=== PATIENT | female | born 1975 | race Caucasian/White ===

== ENCOUNTER 2017-02-02 20:12 | Emergency (ER) | payer OTHER ==
--- NOTE | 2017-02-02 22:08 | ED NURSING NOTES ---
Clinical Report - Nurses [facility] [address] [place] [address] 02/02/2017 20:14 Patient: RYNE DUNAWAY TRIAGE Triage time 2025 PM. Acuity: LEVEL 3. Chief Complaint: HEADACHE and MIGRAINE HEADACHE. Alert. No acute distress. SEPSIS SCREEN: Sepsis Screen. Negative (no infection suspected/documented). FLORIDALMA COMA SCORE: [place] Coma Scale: 15- eyes open spontaneously (4); best verbal response- oriented x 4 (5); best motor response- obeys commands (6). --20:38 Neli Landaverde R.N. 20:26 02/02/17. BP: 122/60 (regular adult cuff) taken on the left arm, via an automated monitor, while sitting. HR: 80. RR: 14. O2 saturation: 100%. Temp: 98.2 F. Pain level now: 06/22. --20:38 Neli Landaverde R.N. Weight: 110.6 kg stated. Height/Length: 66 inches Per Patient. BMI: 39.4. --20:26 Neli Landaverde R.N. Medications Cymbalta Oral. --20:34 Neli Landaverde R.N. Topiramate Oral 100 mg, daily. --20:35 Neli Landaverde R.N. Ortho Tri-Cyclen (28) Oral. --20:35 Neli Landaverde R.N. Allergies Neomycin. --20:34 Neli Landaverde R.N. Avacodos. --20:34 Neli Landaverde R.N. Medication/allergy information source: the patient. --20:38 Neli Landaverde R.N. History Arrived by private vehicle. Historian: patient. Unaccompanied. Primary physician (Dr. Murray). ( Pt states has suffered from migraines for a couple of years has been under control with meds until 2 weeks ago, now they are not manageable. Went to the Urgent care on [address], received Toradol which helped but since Wednesday has been vomiting approximately 10 times a day with diarrhea (5-6 times). Admits to having numbness and tingling on both hands and radiates up to mid FA.). This started wednesday. She has had nausea, vomiting and numbness. No fever or sinus pain. Treatment AUTOMOBILE APPRAISER: None. PAST MEDICAL HX: Immunizations: up-to-date. Last normal menstrual period- January 31. Sexual history - sexually active. Uses control pills. SOCIAL HX: Former smoker. Occasional alcohol use. (3 weeks). No drug use. No recent travel. No infectious disease exposure. No known contact with a sick individual. ABUSE ASSESSMENT: No report of abuse. SELF HARM ASSESSMENT: A self harm assessment was performed. The patient answered "no" to the question "Do you have thoughts of harming or killing yourself?" and "Have you recently had thoughts about harming or killing others?". FALL RISK ASSESSMENT: Fall risk assessment completed. No fall risk identified. NUTRITIONAL RISK ASSESSMENT: The nutritional risk assessment revealed no deficiencies. FUNCTIONAL ASSESSMENT: Functional assessment: no impairments noted. LEARNING NEEDS ASSESSMENT: The learning needs assessment revealed no barriers. SKIN INTEGRITY ASSESSMENT: Skin integrity risk assessment completed. No skin integrity risk identified. --20:38 Neli Landaverde R.N. PROBLEMS: Fibromyalgia. Migraine Headache. --20:36 Neli Landaverde R.N. ADDITIONAL SURGERIES: Cholecystectomy. Ear surgery for scar tissue . --20:36 Neli Landaverde R.N. Interventions ID band on patient. --20:38 Neli Landaverde R.N. PHYSICAL ASSESSMENT Ambulatory to room. GENERAL / NEURO / PSYCH: Alert. Oriented X 4. Appears in pain. Speech within normal limits. HEENT: No facial asymmetry noted. Pupils equal, round and reactive to light. RESPIRATORY: Respirations not labored. Breath sounds within normal limits. CVS: Capillary refill less than 2 seconds. GI / : Abdomen soft and nontender. SKIN: Skin is warm and dry. --20:38 Neli Landaverde R.N. NURSING PROGRESS NOTES The initial plan of care for this patient has been created This plan of care was discussed with the patient. Patient gowned. Reassurance given. Lights dimmed. Two patient identifiers checked. Call light placed in reach. Side rails up x 1. Bed placed in lowest position. Brakes of bed on. Patient ready for evaluation- chart flagged. --20:39 Neli Landaverde R.N. 20:40 02/02/2017 Site #1 started via IV in the left hand with an 20g angiocath; one attempt. Blood drawn: rainbow set. Labeled in the presence of the patient and sent to the lab. --21:05 Neli Landaverde R.N. 21:00 02/02/2017 Toradol IVP 30 mg given over 30 second(s) via site #1. Allergies verified and confirmed 5 rights. IV patency established. IV site checked: no pain, redness, or swelling. IV flushed thoroughly pre- and post-medication administration. IVP given by RN. --21:05 Neli Landaverde R.N. 21:02/02/2017 Started bag #1 1000 mL IV Fluids IV NS (Saline); at 1000 mL/hr over 1 hour(s) via site #1 via IV pump. Allergies verified and confirmed 5 rights. IV patency established. IV site checked: no pain, redness, or swelling. IV flushed thoroughly pre- and post-medication administration. --21:05 Neli Landaverde R.N. 21:02/02/2017 Zofran (Ondansetron HCl) IVP 8 mg given over 4 minute(s) via site #1. Allergies verified and confirmed 5 rights. IV patency established. IV site checked: no pain, redness, or swelling. IV flushed thoroughly pre- and post-medication administration. IVP given by RN. --21:05 Neli Landaverde R.N. 21:40 02/02/2017 Zofran IVP Response: no adverse reaction pain is improving. Symptoms have improved the patient feels better. --21:40 Neli Landaverde R.N. 21:40 02/02/17. BP: 114/69 (regular adult cuff) taken on the left arm, via an automated monitor, while lying. HR: 66. RR: 15. O2 saturation: 99%. Pain level now: 7/10. --21:42 Neli Landaverde R.N. Warming measures: blanket applied. Reassurance given. Lights dimmed. Reassessment after fluids administered and medication administered. She is calm and has had no adverse reaction. Overall patient status is improved- she states feels better. ( still has a "H/A and would like for something else for the pain, not nauseous anymore" IV fluids infusing, comfort provided). GENERAL / NEURO / PSYCH: The patient reports headache. Denies numbness. HEENT: Denies neck pain. GI / : Denies nausea. Call light placed in reach. Side rails up. Bed placed in lowest position. --21:42 Neli Landaverde R.N. 22:01 02/02/2017 Dilaudid (HYDROmorphone HCl PF) IVP 1 mg given over 30 second(s) via site #1. Allergies verified, confirmed 5 rights and sedative warning given to the patient. IV patency established. IV site checked: no pain, redness, or swelling. IV flushed thoroughly pre- and post-medication administration. IVP given by RN. --22:06 Neli Landaverde R.N. DISPOSITION / DISCHARGE 22:14 02/02/2017 IV Fluids IV NS Discontinued: bag #1 infused upon discharge. Total amount infused: 1000 mL. --22:24 Neli Landaverde R.N. 22:25 02/02/2017 Dilaudid IVP Response: no adverse reaction pain is improving. Symptoms have improved the patient feels better. --22:25 Neli Landaverde R.N. Condition at departure: improved and stable. The goals identified in the patient's plan of care were met. No learning barriers present. Discharge instructions provided and reviewed with the patient. Reviewed medication(s) side effects, precautions, dosing and course information. Prescription(s) given to the patient. Patient verbalized understanding. No treatment instructions or referrals given to the patient. Written instructions not provided in [place]. The patient was discharged by the physician accounting administrative assistant. She was discharged home and accompanied by spouse. She left the Emergency Department ambulatory and via private vehicle. Grocery Deliverer driving. FALL RISK ASSESSMENT: Fall risk assessment completed. No fall risk identified. --22:26 Neli Landaverde R.N. 22:24 02/02/17. BP: 114/58. HR: 79. RR: 15. O2 saturation: 98% on room air. Temp: 98.8 F (oral). Pain level now: 11/20. --22:26 Neli Landaevrde R.N. Departure time: 2234 PM. --22:35 Neli Landaverde R.N. Locked/Released at 02/02/2017 22:35 by Neli Landaverde R.N.
--- NOTE | 2017-02-02 22:08 | ED CLINICAL REPORT ---
Clinical Report - Physicians/Mid Levels [facility] [address] [place] [address] 02/02/2017 20:14 Patient: RYNE DUNAWAY Time Seen: 21:06 Feb 02 2017. Arrived- By private vehicle. Historian- patient. HISTORY OF PRESENT ILLNESS Chief Complaint: HEADACHE. Is still present. This started 4 days. It has been waxing/waning. It is described as similar to previous headaches. The patient has had nausea. (Patient with history of migraine-like headaches, has been using preventative medications, and has had minimize of headaches over the last few months. Patient with no neck pain. No emesis. Patient with no fevers.). Recent medical care: The patient was seen recently by a health care provider (clinic for toradol injeciton). REVIEW OF SYSTEMS No fever, sinus pressure, ear pain, chest pain or cough. No abdominal pain or diarrhea. All systems otherwise negative, except as recorded above. PAST HISTORY Problems: Fibromyalgia. Migraine Headache. Additional Surgeries: Cholecystectomy. Ear surgery for scar tissue . Medications: Ortho Tri-Cyclen (28) Oral. Topiramate Oral 100 mg, daily. Cymbalta Oral. Allergies: Avacodos. Neomycin. SOCIAL HISTORY Former smoker. Alcohol use. ADDITIONAL NOTES The nursing notes have been reviewed. PHYSICAL EXAM Vital Signs: 02/02/2017 20:26 BP: 122/60. HR: 80. RR: 14. O2 saturation: 100%. Temp: 98.2 F. Pain level now: 10/10. Appearance: Alert. No acute distress. Eyes: Pupils equal, round and reactive to light. ENT: Nose normal. Pharynx normal. CVS: Normal heart rate and rhythm. Heart sounds normal. Respiratory: No respiratory distress. Abdomen: Soft. No abdominal tenderness or organomegaly. Neuro: Oriented X 3. Alert. Mood/affect normal. Cranial nerves normal (as tested). No cerebellar findings. No motor deficit. No sensory deficit. LABS, X-RAYS, AND EKG Laboratory Tests: UA-Culture if indicated: (KELY: 02/02/2017 21:15) ( MsgRcvd 02/02/2017 21:44) Final results Test Result Flag Units (Reference) URINE COLOR SHELLEY URINE APPEARANCE SL CLOUDY URINE GLUCOSE NEGATIVE (NEGATIVE) URINE BILIRUBIN 1+ (NEGATIVE) URINE KETONE NEGATIVE (NEGATIVE) URINE SPECIFIC GRAVITY >= 1.030 (1.010-1.030) URINE PH 6.0 (5.0-8.0) URINE PROTEIN TRACE (NEGATIVE) URINE UROBILINOGEN 0.2 EU/dL (0.2-1.0) URINE NITRITE NEGATIVE (NEGATIVE) URINE BLOOD 3+ (NEGATIVE) URINE LEUK ESTERASE NEGATIVE (NEGATIVE) URINE RBC 5-10 rbc/hpf (0-1) URINE WBC 3-5 wbc/hpf (0-1) URINE EPITHELIAL CELLS 1-3 EPI/hpf (0-5) URINE BACTERIA FEW (1+) (NONE SEEN) URINE COMMENT CULT NOT INDICATED 2+ MUCUSICTO TEST NEGURINE CULTURES ARE SET-UP BASED ON THE FOLLOWING CRITERIA:POSITIVE NITRITEPOSITIVE LEUKOCYTE ESTERASEGREATER THAN 10 WHITE BLOOD CELLSMODERATE (2+) OR GREATER BACTERIA Urine: (KELY: 02/02/2017 21:15) ( [facility] 02/02/2017 21:26) Final results Test Result Flag Units (Reference) URINE NEGATIVE CBC w Diff: (KELY: 02/02/2017 20:29) ( [facility] 02/02/2017 21:31) Final results Test Result Flag Units (Reference) WHITE BLOOD COUNT 9.5 K/uL (4.5-11.5) RED BLOOD COUNT 4.54 M/uL (4.00-5.20) HEMOGLOBIN 14.3 gm/dL (12.0-16.0) HEMATOCRIT 41.9 % (36.0-46.0) MEAN CELL VOLUME 93 fL (80-100) MEAN CORPUSCULAR HGB 31 pg (26-34) MEAN CORPUSCULAR HGB CONC 34 g/dL (31-37) RED CELL DISTRIBUTION WIDTH 13.1 % (11.6-14.8) PLATELET COUNT 223 K/uL (150-400) NEUTROPHIL % 68.1 % (50-75) LYMPH % 26.2 % (25-40) MONO % 4.7 % (3-14) EOSINOPHIL % 0.6 % (0-4) BASOPHIL % 0.4 % (0-2) [id number]: (KELY: 02/02/2017 20:29) ( MsgRcvd 02/02/2017 21:49) Final results Test Result Flag Units (Reference) PROCALCITONIN <0.5 ng/mL (0-0.5) PCT Concentration: Interpretation : Risk/option for action PCT <=0.5 ng/mL : Systemic : Low risk forinfection(sepsis): progression to severeis not likely. : systemic infection.Local bacterial : CAUTION-PCT levelsinfection is : below 0.5 ng/mL do notpossible. : exclude an infection,because localizedinfections (withoutsystemic signs) may beassociated with suchlow levels. If PCT ismeasured very earlyafter a bacterialchallenge (usually <6hours), these valuesmay still be low. Inthis case PCT shouldbe re-assessed 6-24hours later. PCT >0.5 and : Systemic infection: Moderate risk for<= 2 ng/mL : (sepsis) is : progression to severepossible, but : systemic infection.other conditions : The patient should beare known to : closely monitoredelevate PCT. : both clinically andby re-assessing PCTwithin 6-24 hours. PCT > 2 ng/mL : Systemic infection: High risk for(sepsis) is likely: progression to severeunless other : systemic infection.causes are known. : PCT >= 10 ng/mL : Important systemic: High likelihood ofinflammatory : severe sepsis orresponse, almost : septic shock.exclusively due to:severe bacterial :sepsis or septic :shock. : CMP: (KELY: 02/02/2017 20:29) ( MsgRcvd 02/02/2017 21:43) Final results Test Result Flag Units (Reference) GLUCOSE 100 mg/dL (70-110) BUN 12 mg/dL (7-18) CREATININE 0.9 mg/dL (0.6-1.3) Estimated GFR >60 mL/min Estimated GFR- >60 mL/min Note: Persistent reduction over 3 months in eGFR<60 mL/min/1.73 m2 defines CKD. Patients with eGFR values>=60 mL/min/1.73 m2 may also have CKD if evidence ofpersistent proteinuria. Additional information may be foundat www.kidney.org. SODIUM 140 mmol/L (136-145) POTASSIUM 3.7 mmol/L (3.5-5.1) CHLORIDE 105 mmol/L (98-107) CARBON DIOXIDE 23 mmol/L (21-32) CALCIUM 8.7 mg/dL (8.5-10.1) TOTAL PROTEIN 7.7 g/dL (6.4-8.2) ALBUMIN 3.2 L g/dL (3.3-5.0) BILIRUBIN, TOTAL 0.4 mg/dL (0.0-1.0) ALKALINE PHOSPHATASE 49 U/L (46-116) AST (SGOT) 15 U/L (15-37) ALT (SGPT) 22 U/L (12-78) LIPASE 139 U/L (73-393) THYROID STIMULATING HORMONE 2.112 uIU/mL (0.34-3.74) . PROGRESS AND PROCEDURES Course of Care: Patient is very stable in the emergency department, no emesis ongoing headache for over 5 days, headache symptoms off and on. I do not suspect meningitis or subarachnoid hemorrhage at this time. Headache is frontal in nature and throbbing, with occasional nausea and light sensitivity, to her similar previous symptoms of migraine as such. At this time patient with unremarkable labs, no other signs of acute pathology. She is to follow up outpatient as needed. 02/02/2017 21:40 BP: 114/69. HR: 66. RR: 15. O2 saturation: 99%. Pain level now: 7/10. Patient is stable. Symptoms better. Patient/family counseled. Disposition: Discharged. Condition: good. CLINICAL IMPRESSION Headache. Migraine headache. Viral syndrome INSTRUCTIONS Do not work today, tomorrow. Prescription Medications: Zofran (orally disintegrating tablets) 4 mg: take 1 orally every 6 hours for 3 days as needed for nausea. Dispense ten (10). No refill. Substitution is permissible. Follow-up: Follow up with your doctor in three days as needed. (Electronically signed by Addie Villatoro P.A.-C 02/02/2017 22:23)
--- NOTE | 2017-02-02 22:08 | ED ORDER SUMMARY ---
..... Patient: RYNE DUNAWAY OrderSheet [facility] VisitID: [id number] [address] [place] [address] 41y, F Registration Date/Time: 02/02/2017 ORDER SHEET Weight: 110.6 kg (stated) Allergies: Neomycin, Avacodos GENERAL ORDERS: CBC w Diff Urgent (20:47 02/02/2017 EKoroleva P.A.-C) (Ack 21:01 AMcQuoid ER Tech1) (21:03 EHassan R.N.) CMP Urgent (20:47 02/02/2017 EKoroleva P.A.-C) (Ack 21:01 AMcQuoid ER Tech1) (21:03 EHassan R.N.) UA-Culture if indicated Urgent (20:47 02/02/2017 EKoroleva P.A.-C) (Ack 21:01 AMcQuoid ER Tech1) (21:40 EHassan R.N.) Urine Urgent (20:47 02/02/2017 EKoroleva P.A.-C) (Ack 21:01 AMcQuoid ER Tech1) (21:40 EHassan R.N.) Lipase Urgent (20:47 02/02/2017 EKoroleva P.A.-C) (Ack 21:01 AMcQuoid ER Tech1) (21:03 EHassan R.N.) TSH Urgent (20:47 02/02/2017 EKoroleva P.A.-C) (Ack 21:01 AMcQuoid ER Tech1) (21:03 EHassan R.N.) PCT (Procalcitonin) Urgent (20:48 02/02/2017 EKoroleva P.A.-C) (Ack 21:01 AMcQuoid ER Tech1) (21:03 EHassan R.N.) MEDICATION ORDERS: IV FLUIDS: IV NS : initial bolus 1000 mL (1000 mL/hr), then 1000 mL/hr for X1 (NOW); Ryan (20:47 02/02/2017 EKoroleva P.A.-C) (21:05 EHassan R.N.) Toradol IV 30 mg (NOW) (20:48 02/02/2017 EKorolefloyd P.A.-C) (21:05 EHassan R.N.) Zofran IV 8 mg (NOW) (20:48 02/02/2017 EKoroleva P.A.-C) (21:05 EHassan R.N.) Dilaudid IV 0.5 mg (HIGH ALERT MEDICATION, NOW) (21:49 02/02/2017 EKanneliseleva P.A.-C) (Cancelled: Other21:58 EHassan R.N.) Dilaudid IV 1 mg (HIGH ALERT MEDICATION, NOW) (21:57 02/02/2017 EKoroleva P.A.-C) (22:06 MELANIEassan R.N.) ORDER SHEET NOTES: [Electronically signed by Addie VillatoroAReji-Elizabeth (22:23 02/02/2017)] [Electronically signed by Neli Landaverde R.N. (22:35 02/02/2017)] [Electronically locked/signed by Neli Landaverde R.N. (22:35 02/02/2017)]
--- NOTE | 2017-02-02 22:08 | ED ORDER SUMMARY ---
..... Patient: RYNE DUNAWAY OrderSheet [facility] VisitID: [id number] [address] [place] [address] 41y, F Registration Date/Time: 02/02/2017 ORDER SHEET Weight: 110.6 kg (stated) Allergies: Neomycin, Avacodos GENERAL ORDERS: CBC w Diff Urgent (20:47 02/02/2017 EKoroleva P.A.-C) (Ack 21:01 AMcQuoid ER Tech1) (21:03 EHassan R.N.) CMP Urgent (20:47 02/02/2017 EKoroleva P.A.-C) (Ack 21:01 AMcQuoid ER Tech1) (21:03 EHassan R.N.) UA-Culture if indicated Urgent (20:47 02/02/2017 EKoroleva P.A.-C) (Ack 21:01 AMcQuoid ER Tech1) (21:40 EHassan R.N.) Urine Urgent (20:47 02/02/2017 EKoroleva P.A.-C) (Ack 21:01 AMcQuoid ER Tech1) (21:40 EHassan R.N.) Lipase Urgent (20:47 02/02/2017 EKoroleva P.A.-C) (Ack 21:01 AMcQuoid ER Tech1) (21:03 EHassan R.N.) TSH Urgent (20:47 02/02/2017 EKoroleva P.A.-C) (Ack 21:01 AMcQuoid ER Tech1) (21:03 EHassan R.N.) PCT (Procalcitonin) Urgent (20:48 02/02/2017 EKoroleva P.A.-C) (Ack 21:01 AMcQuoid ER Tech1) (21:03 EHassan R.N.) MEDICATION ORDERS: IV FLUIDS: IV NS : initial bolus 1000 mL (1000 mL/hr), then 1000 mL/hr for X1 (NOW); Ryan (20:47 02/02/2017 EKoroleva P.A.-C) (21:05 EHassan R.N.) Toradol IV 30 mg (NOW) (20:48 02/02/2017 EKorolefloyd P.A.-C) (21:05 EHassan R.N.) Zofran IV 8 mg (NOW) (20:48 02/02/2017 EKoroleva P.A.-C) (21:05 EHassan R.N.) Dilaudid IV 0.5 mg (HIGH ALERT MEDICATION, NOW) (21:49 02/02/2017 EKanneliseleva P.A.-C) (Cancelled: Other21:58 EHassan R.N.) Dilaudid IV 1 mg (HIGH ALERT MEDICATION, NOW) (21:57 02/02/2017 EKoroleva P.A.-C) (22:06 MELANIEassan R.N.) ORDER SHEET NOTES: [Electronically signed by Addie VillatoroAReji-Elizabeth (22:23 02/02/2017)] [Electronically signed by Neli Landaverde R.N. (22:35 02/02/2017)] [Electronically locked/signed by Neli Landaverde R.N. (22:35 02/02/2017)]
--- NOTE | 2017-02-02 22:35 | ED DISCHARGE INSTRUCTIONS ---
Patient: RYNE DUNAWAY General Instructions [facility] VisitID: [id number] [address] [place] [address] 41y, F Registration Date/Time: 02/02/2017 Headache. Migraine headache. Viral syndrome INSTRUCTIONS Do not work today, tomorrow. Prescription Medications: Zofran (orally disintegrating tablets) 4 mg: take 1 orally every 6 hours for 3 days as needed for nausea. Dispense ten (10). No refill. Substitution is permissible. Follow-up: Follow up with your doctor in three days as needed. ADDITIONAL INFORMATION Migraine Headache Migraine headaches are related to changes in blood flow to the brain. This causes throbbing or constant pain on one or both sides of the head. The pain may last from a few hours to several days. There is usually nausea, vomiting, sensitivity to light and sound, and blurred vision. A migraine attack may be triggered by emotional stress, hormone changes during the menstrual cycle, oral contraceptives, alcohol use, certain foods containing tyramine, eye strain, weather changes, missing meals, or too little or too much sleep. Home Care For This Headache: 1) If you were given pain medicine for this headache, do not drive yourself home . Arrange for a ride, instead. When you get home, try to sleep. You should feel much better when you wake up. 2) Migraine headaches may improve with an ice pack on the forehead or at the base of the skull. Heat to the back of your neck may relieve any neck spasm. 3) Drink only clear liquids or eat a very light diet to avoid nausea/vomiting until symptoms improve. Preventing Future Headaches: 1) Pay attention to those factors that seem to trigger your headache. Try to avoid them when you can. If you have frequent headaches, it is useful to keep a diary of what you were doing, feeling or eating in the hours before each attack. Show this to your doctor to help find the cause of your headaches. a) If you feel that stress is a factor in your headaches, look at the sources of stress in your life. Find ways to release the build-up of those stresses by using regular exercise, relaxation methods (yoga, meditation), bio-feedback or simply taking time-out for yourself. For more information about this, consult your doctor or go to a local bookstore and review books and tapes on this subject. b) Tyramine is a substance present in the following foods : chocolate, yogurt, all cheeses except cottage cheese and cream cheese. smoked or pickled fish and meat (including milner, caviar, bologna, pepperoni, salami), liver, avocados, bananas, figs, raisins, and red wine. Be aware that these foods may trigger a migraine in some persons. Try taking these foods out of your diet for 1-2 months to see if this reduces headache frequency. Treating Future Attacks: 1) At the first sign of a headache, take time out if possible. Find a quiet, dark, comfortable place to sit or lie down. Let yourself relax or sleep. 2) An ice pack on the forehead or area of greatest pain may help. If you are having muscle spasm and tightness of the neck, a heating pad and massage to this area may be helpful. 3) If you have been prescribed a medicine to stop a migraine headache, use this at the very first warning sign of the headache (aura or initial pain) for best results. Follow Up with your doctor if the headache is not better within the next 24 hours. If you have frequent headaches you should discuss a treatment plan with your primary care doctor. Ask if you can have medicine to take at home the next time you get a bad headache. Poorly controlled chronic headaches may require a referral to a neurologist (headache specialist). Get Prompt Medical Attention if any of the following occur: Your head pain gets worse, or does not improve within 24 hours Repeated vomiting (cant keep liquids down) Sinus or ear or throat pain (not already reported) Fever of 100.4 F (38 C) or higher, or as directed by your healthcare provider Stiff neck Extreme drowsiness, confusion or fainting Dizziness, vertigo (dizziness with spinning sensation) Weakness of an arm or leg or one side of the face Difficulty with speech or vision Tension Headache Muscle Tension Headache (also called "stress headache") is a very common cause of head pain. Under stress, some people tense the muscles of their shoulder, neck and scalp without knowing it. If this lasts long enough, a headache can occur. These headaches can be very painful and last for hours or even days. Home Care: If you were given pain medicine for this headache, do not drive yourself home. Arrange for a ride, instead. When you get home, try to sleep. You should feel much better when you wake up. Heat to the back of your neck may relieve neck spasm. Drink only clear liquids or eat a very light diet to avoid nausea/vomiting until symptoms improve. Preventing Future Headaches Identify the sources of stress in your life. These may not be obvious! Learn new ways to handle your stress, such as regular exercise, biofeedback, self-hypnosis and meditation. For more information about this, consult your doctor or go to a local bookstore and review the many books and tapes on this subject. At the first sign of a tension headache, take time out if possible. Remove yourself from the stressful situation, find a quiet comfortable place to sit or lie down and let yourself relax. Heat and deep massage of the tight areas in the neck and shoulders may help reduce muscle spasm. Medicine, such as ibuprofen (Advil or Motrin) or a prescribed muscle relaxant may be helpful at this point. Follow Up with your doctor if the headache is not better within the next 24 hours. If you have frequent headaches you should discuss a treatment plan with your primary care doctor. Ask if you can have medicine to take at home the next time you get a bad headache. This may avoid the need for a visit to the emergency department in the future. Poorly controlled chronic headaches may require a referral to a neurologist (headache specialist). Get Prompt Medical Attention if any of the following occur: Worsening of your head pain or no improvement within 24 hours Repeated vomiting (unable to keep liquids down) Fever of 100.4F (38C) or higher, or as directed by your healthcare provider Stiff neck Extreme drowsiness, confusion or fainting Dizziness, vertigo (dizziness with spinning sensation) Weakness of an arm or leg or one side of the face Difficulty with speech or vision Viral Syndrome (Adult) A viral illness may cause a number of symptoms. The symptoms depend on the part of the body that the virus affects. If it settles in the nose, throat, and lungs, it may cause cough, sore throat, congestion, and sometimes headache. If it settles in the stomach and intestinal tract, it may cause vomiting and diarrhea. Sometimes it causes vague symptoms like "aching all over," feeling tired, loss of appetite, or fever. A viral illness usually lasts1 to 2 weeks, but sometimes it lasts longer. In some cases, a more serious infection can look like a viral syndrome in the first few days of the illness. You may need anotherexam and additional teststo know the difference.Watch for the warning signs listed below. Home care Follow these guidelines for taking care of yourself at home: If symptoms are severe, rest at home for the first 2 to 3 days. Stay away from cigarette smoke - both your smoke and the smoke from others. You may useacetaminophen or ibuprofen for fever, muscle aching, and headache, unless another medicine was prescribed for this.If you have chronic liver or kidney disease or ever had a stomach ulcer or GI bleeding, talk with your doctor before using these medicinesNo one who is younger than 18 and ill with a fever should take aspirin. It may cause severe liver damage. Your appetite may be poor, so a light diet is fine. Avoid dehydration by drinking 8 to 12 8-ounce glasses of fluids each day. This may include water; orange juice; lemonade; apple, grape, and cranberry juice; clear fruit drinks; electrolyte replacement and sports drinks; and decaffeinated teas and coffee. If you have been diagnosed with a kidney disease, ask your doctor how much and what types of fluids you should drink to prevent dehydration. If you have kidney disease, drinking too much fluid can cause it build up in the your body and be dangerous to your health. Okdz-omq-mzogyhf remedies won't shorten the length of the illness but may be helpful forcough, sore throat; and nasal and sinus congestion. Don't use decongestants if you have high blood pressure. Follow-up care Follow up with your health care provider if you do not improve over the next week. When to seek medical care Get prompt medical attention if any of these occur: Cough with lots of colored sputum (mucus) or blood in your sputum Chest pain, shortness of breath, wheezing, or difficulty breathing Severe headache; face, neck, or ear pain Severe, constant pain in the lower right side of your belly (abdominal) Continued vomiting (cant keep liquids down) Frequent diarrhea (more than 5 times a day); blood (red or black color) or mucus in diarrhea Feeling weak, dizzy, or like you are going to faint Extreme thirst Fever of 100.4 F (38 C) oral or higher, not better with fever medication Convulsion Ondansetron Oral disintegrating tablet What is this medicine? ONDANSETRON (on ESVIN se odilia) is used to treat nausea and vomiting caused by chemotherapy. It is also used to prevent or treat nausea and vomiting after surgery. How should I use this medicine? These tablets are made to dissolve in the mouth. Do not try to push the tablet through the foil backing. With dry hands, peel away the foil backing and gently remove the tablet. Place the tablet in the mouth and allow it to dissolve, then swallow. While you may take these tablets with water, it is not necessary to do so. Talk to your cash sales audit clerk regarding the use of this medicine in children. Special care may be needed. What side effects may I notice from receiving this medicine? Side effects that you should report to your doctor or health career center director as soon as possible: allergic reactions like skin rash, itching or hives, swelling of the face, lips, or tongue breathing problems dizziness fast or irregular heartbeat feeling faint or lightheaded, falls fever and chills swelling of the hands and feet tightness in the chest Side effects that usually do not require medical attention (report to your doctor or health career center director if they continue or are bothersome): constipation or diarrhea headache What may interact with this medicine? Do not take this medicine with any of the following medications: -apomorphine -cisapride -dofetilide -dronedarone -pimozide -thioridazine -ziprasidone This medicine may also interact with the following medications: -carbamazepine -phenytoin -rifampicin -tramadol -other medicines that prolong the QT interval (cause an abnormal heart rhythm) What if I miss a dose? If you miss a dose, take it as soon as you can. If it is almost time for your next dose, take only that dose. Do not take double or extra doses. Where should I keep my medicine? Keep out of the reach of children. Store between 2 and 30 degrees C (36 and 86 degrees F). Throw away any unused medicine after the expiration date. What should I tell my health care provider before I take this medicine? They need to know if you have any of these conditions: heart disease history of irregular heartbeat liver disease low levels of magnesium or potassium in the blood an unusual or allergic reaction to ondansetron, granisetron, other medicines, foods, dyes, or preservatives or trying to get breast-feeding What should I watch for while using this medicine? Check with your doctor or health career center director as soon as you can if you have any sign of an allergic reaction. You have been given the following additional information: Headache, Migraine (Classical) Headache, Tension Viral Syndrome (Adult) Ondansetron Oral disintegrating tablet Do not work today, tomorrow. (Electronically signed by Addie Villatoro P.A.-C 02/02/2017 22:23)
--- NOTE | 2017-02-02 22:35 | ED MAR SUMMARY ---
..... Medication Administration Record [facility] [address] [place] [address] Patient: RYNE DUNAWAY Visit ID: [id number] 41y, F Weight: 110.6 kg Height/Length: 66 in BMI: 39.4 ALLERGIES: Avacodos, Neomycin Given 21:00 02/02/2017 Neli Landaverde R.N. Medication Administered: TORADOL [IVP], Dose: 30 mg IVP over 30 second(s), Site: #1 left hand. Medication Ordered: Toradol IV 30 mg (NOW). Given 21:05 02/02/2017 Neli Landaverde R.N. Medication Administered: ZOFRAN [IVP] (ONDANSETRON HCL), Dose: 8 mg IVP over 4 minute(s), Site: #1 left hand. Medication Ordered: Zofran IV 8 mg (NOW). Start 21:05 02/02/2017 Neli Landaverde R.N., Stop 22:14 02/02/2017 Neli Landaverde R.N. Medication Administered: IV NS (SALINE), Dose: IV Fluids over 1 hour(s), Rate: 1000 mL/hr, Dispensed: 1000 mL bag, Site: #1 left hand. Medication Ordered: IV NS : initial bolus 1000 mL (1000 mL/hr), then 1000 mL/hr for X1 (NOW); Ryan. Given 22:01 02/02/2017 Neli Landaverde R.N. Medication Administered: DILAUDID [IVP] (HYDROMORPHONE HCL PF), Dose: 1 mg IVP over 30 second(s), Site: #1 left hand. Medication Ordered: Dilaudid IV 1 mg (HIGH ALERT MEDICATION, NOW).
--- NOTE | 2017-02-02 22:35 | ED MED RECONCILIATION SUMMARY ---
Patient: RYNE DUNAWAY Medication Reconciliation Report [facility] VisitID: [id number] [address] [place] [address] 41y, F Registration Date/Time: 02/02/2017 Weight: 110.6 kg Height/Length: 66 in. BMI: 39.4 ALLERGIES: Avacodos, Neomycin The patient's Home Medications are listed below: THE FOLLOWING MEDICATIONS NEED TO BE RECONCILED: Cymbalta Oral Ortho Tri-Cyclen (28) Oral Topiramate Oral 100 mg, daily The source(s) of the original Home Medication information: patient The following Medications were given to the patient in the Emergency Department: IV NS IV Fluids bolus 0, then 1000 mL/hr, administered: 02/02/2017 9:05:00 PM Toradol [IVP] IVP 30 mg, administered: 02/02/2017 9:00:00 PM Zofran [IVP] IVP 8 mg, administered: 02/02/2017 9:05:00 PM Dilaudid [IVP] IVP 1 mg, administered: 02/02/2017 10:01:00 PM The following Medications were prescribed to the patient: Zofran (orally disintegrating tablets) 4 mg: take 1 orally every 6 hours for 3 days as needed for nausea. Dispense ten (10). No refill. Substitution is permissible. -- Addie Villatoro P.A.-C
--- NOTE | 2017-02-02 22:35 | ED MED RECONCILIATION SUMMARY ---
Patient: RYNE DUNAWAY Medication Reconciliation Report Located [facility] VisitID: [id number] [address] [place] [address] 41y, F Registration Date/Time: 02/02/2017 Weight: 110.6 kg Height/Length: 66 in. BMI: 39.4 ALLERGIES: Avacodos, Neomycin The patient's Home Medications are listed below: THE FOLLOWING MEDICATIONS NEED TO BE RECONCILED: Cymbalta Oral Ortho Tri-Cyclen (28) Oral Topiramate Oral 100 mg, daily The source(s) of the original Home Medication information: patient The following Medications were given to the patient in the Emergency Department: IV NS IV Fluids bolus 0, then 1000 mL/hr, administered: 02/02/2017 9:05:00 PM Toradol [IVP] IVP 30 mg, administered: 02/02/2017 9:00:00 PM Zofran [IVP] IVP 8 mg, administered: 02/02/2017 9:05:00 PM Dilaudid [IVP] IVP 1 mg, administered: 02/02/2017 10:01:00 PM The following Medications were prescribed to the patient: Zofran (orally disintegrating tablets) 4 mg: take 1 orally every 6 hours for 3 days as needed for nausea. Dispense ten (10). No refill. Substitution is permissible. -- Addie Villatoro P.A.-C
--- NOTE | 2017-02-02 22:35 | ED MAR SUMMARY ---
..... Medication Administration Record [facility] [address] [place] [address] Patient: RYNE DUNAWAY Visit ID: [id number] 41y, F Weight: 110.6 kg Height/Length: 66 in BMI: 39.4 ALLERGIES: Avacodos, Neomycin Given 21:00 02/02/2017 Neli Landaverde R.N. Medication Administered: TORADOL [IVP], Dose: 30 mg IVP over 30 second(s), Site: #1 left hand. Medication Ordered: Toradol IV 30 mg (NOW). Given 21:05 02/02/2017 Neli Landaverde R.N. Medication Administered: ZOFRAN [IVP] (ONDANSETRON HCL), Dose: 8 mg IVP over 4 minute(s), Site: #1 left hand. Medication Ordered: Zofran IV 8 mg (NOW). Start 21:05 02/02/2017 Neli Landaverde R.N., Stop 22:14 02/02/2017 Neli Landaverde R.N. Medication Administered: IV NS (SALINE), Dose: IV Fluids over 1 hour(s), Rate: 1000 mL/hr, Dispensed: 1000 mL bag, Site: #1 left hand. Medication Ordered: IV NS : initial bolus 1000 mL (1000 mL/hr), then 1000 mL/hr for X1 (NOW); Ryan. Given 22:01 02/02/2017 Neli Landaverde R.N. Medication Administered: DILAUDID [IVP] (HYDROMORPHONE HCL PF), Dose: 1 mg IVP over 30 second(s), Site: #1 left hand. Medication Ordered: Dilaudid IV 1 mg (HIGH ALERT MEDICATION, NOW).
== END 2017-02-02 22:34 | disposition home or self-care (01) ==
LOC: ED SRH 20:12
DX: G43.909 Migraine, unspecified, not intractable, without status migrainosus (principal); B34.9 Viral infection, unspecified; R11.0 Nausea; Z79.899 Other long term (current) drug therapy; Z88.1 Allergy status to other antibiotic agents; Z91.018 Allergy to other foods
CPT/HCPCS: 90004; 90100; 92235; 93004; 93070; 93140; 95059